=== PATIENT | female | born 1970 ===

== ENCOUNTER 2019-01-28 16:01 | Outpatient (CLI) | payer OTHER ==
[~2019-01-28] VITALS: Ht 167.6 cm; Wt 81.6 kg
== END 2019-01-28 16:20 | disposition home or self-care (01) ==
LOC: OFIC 805 16:01
DX: K21.0 Gastro-esophageal reflux disease with esophagitis (principal); E04.1 Nontoxic single thyroid nodule; R49.0 Dysphonia